=== PATIENT | female | born 2000 | race Caucasian/White ===

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

== ENCOUNTER 2022-01-13 20:57 | Emergency (ER) | payer OTHER ==
[~2022-01-13] VITALS: Ht 172.7 cm; Wt 68.0 kg
[2022-01-13 23:22] LABS: Source, Urine Clean Catch
[2022-01-13 23:25] LABS: Bilirubin, Urine Neg (Neg); Blood, Urine Neg (Neg); Glucose Qualitative, Urine Neg (Neg); Ketones, Urine Neg (Neg); Leukocyte Esterase, Urine 1+ (Neg); Nitrite, Urine Neg (Neg); Protein, Urine 1+ (Neg); Urobilinogen, Urine NORM (Normal)
[2022-01-13 23:46] LABS: Appearance, Urine Hazy (Clear); Color, Urine Yellow (P-Yellow)
[2022-01-13 23:48] LABS: Amorphous Light (0-Heavy); Bacteria Many /hpf; Mucus Mod (0-Heavy); Red Blood Cells, Urine Not Seen /hpf (0-2); Squamous Epithelial Cells Mod /hpf (Few)
[2022-01-14] MEDS ORDERED: ONDA4ODT MM (02:58)
== END 2022-01-14 03:16 | disposition home or self-care (01) ==
LOC: ER 20:57
PROVIDERS: Physician Assistant
DX: K52.9 Noninfective gastroenteritis and colitis, unspecified (principal); M54.9 Dorsalgia, unspecified; R11.2 Nausea with vomiting, unspecified
CPT/HCPCS: 81001; 81025; 87086; 99284; A9270; J1885

== ENCOUNTER → 2023-06-30 | Outpatient (CLI) | payer OTHER ==
[~2023-06-30] MED LIST changes: +ONDA4ODT MM
== END ==
LOC: LAB 16:38 → LAB SHORT 16:38
DX: J02.9 Acute pharyngitis, unspecified (principal)
CPT/HCPCS: 87081; 87147

== ENCOUNTER 2023-12-23 20:23 | Emergency (ER) | payer OTHER ==
[~2023-12-23] VITALS: Ht 172.7 cm; Wt 65.8 kg
[2023-12-23 20:28] VITALS: BP 136/96
== END 2023-12-24 01:07 | disposition home or self-care (01) ==
LOC: ER 20:23
DX: S05.01XA Injury of conjunctiva and corneal abrasion without foreign body, right eye, initial encounter (principal); X16.XXXA Contact with hot heating appliances, radiators and pipes, initial encounter; Z79.899 Other long term (current) drug therapy

== ENCOUNTER → 2024-10-20 | Outpatient (CLI) | payer OTHER ==
[~2024-10-20] MED LIST changes: +Adderall Xr 2020 MG PO
[2024-10-20 19:50] LABS: BASOPHILS ABSOLUTE AUTO 0.03 K/mm3 (0.00-0.23); BASOPHILS PERCENT AUTO 1 % (0-2); EOSINOPHILS ABSOLUTE AUTO 0.08 K/mm3 (0.00-0.68); EOSINOPHILS PERCENT AUTO 1 % (0-6); Hematocrit 39.9 % (33.0-51.0); Hemoglobin 12.9 g/dL (11.5-16.0); IMMATURE GRAN ABSOLUTE AUTO 0.01 K/mm3 (0.00-0.10); IMMATURE GRAN PERCENT AUTO 0 % (0-1); LYMPHOCYTES ABSOLUTE AUTO 2.01 K/mm3 (0.84-5.20); LYMPHOCYTES PERCENT AUTO 36 % (21-46); MONOCYTES ABSOLUTE AUTO 0.52 K/mm3 (0.16-1.47); MONOCYTES PERCENT AUTO 9 % (4-13); Mean Corpuscular HGB 30.3 pg (26.0-34.0); Mean Corpuscular HGB Conc 32.3 g/dL (31.5-36.5); Mean Corpuscular Volume 94 fL (80-100); Mean Platelet Volume 11.5 fL (9.1-12.4); NEUTROPHILS ABSOLUTE AUTO 2.98 K/mm3 (1.96-9.15); NEUTROPHILS PERCENT AUTO 53 % (41-73); Platelet Count 259 K/mm3 (150-400); RDW Coefficient Variation 13.4 % (11.7-14.2); Red Blood Cell Count 4.26 M/mm3 (3.80-5.20); White Blood Cell Count 5.63 K/mm3 (4.00-11.30)
[2024-10-20 20:12] LABS: Percent Saturation 12.5 % (15.0-50.0); Thyroid Stimulating Hormone 1.17 uIU/mL (0.360-4.800)
[2024-10-20 20:13] LABS: Albumin, Blood 4.3 g/dL (3.4-5.0); Albumin/Globulin Ratio 1.3 (0.8-1.8); Bilirubin, Total 0.4 mg/dL (0.1-1.0); Calcium, Blood 8.9 mg/dL (8.5-10.1); Creatinine, Blood 0.59 mg/dL (0.40-1.00); Globulin, Blood 3.3 g/dL (2.2-4.0); Potassium, Blood 3.8 mmol/L (3.5-5.5); Total Protein, Blood 7.6 g/dL (6.4-8.2)
== END ==
LOC: LAB 19:45 → LAB SHORT 19:45
PROVIDERS: Student in an Organized Health Care Education/Training Program
DX: R53.83 Other fatigue (principal); E55.9 Vitamin D deficiency, unspecified
CPT/HCPCS: 80053; 82306; 82728; 83540; 83550; 84443; 85025

== ENCOUNTER → 2025-01-03 | Outpatient (CLI) | payer OTHER ==
[2025-01-04 14:07] LABS: Candida Group, PCR NOT DETECTED (NOT DETECT); Candida glabrata-krusei, PCR NOT DETECTED (NOT DETECT)
[2025-01-04 14:09] LABS: Bacterial Vaginosis PCR Positive (NEGATIVE)
[2025-01-04 16:56] LABS: Neisseria Gonorrhoea Vaginal NOT DETECTED (NOT DETECT)
[2025-01-04 17:08] LABS: Chlamydia Trachomatis Vaginal DETECTED (NOT DETECT)
== END ==
LOC: LAB SHORT 14:04 → LAB 14:04
PROVIDERS: Student in an Organized Health Care Education/Training Program
DX: Z72.51 High risk heterosexual behavior (principal)
CPT/HCPCS: 81515; 87491; 87591

== ENCOUNTER → 2025-02-14 | Outpatient (CLI) | payer OTHER ==
[2025-02-14 18:51] LABS: Bacterial Vaginosis PCR Negative (NEGATIVE); Candida glabrata-krusei, PCR NOT DETECTED (NOT DETECT)
[2025-02-14 19:23] LABS: Chlamydia Trachomatis Vaginal NOT DETECTED (NOT DETECT); Neisseria Gonorrhoea Vaginal NOT DETECTED (NOT DETECT)
[2025-02-14 23:40] LABS: Candida Group, PCR DETECTED (NOT DETECT)
== END ==
LOC: LAB SHORT 16:23 → LAB 16:23
PROVIDERS: Student in an Organized Health Care Education/Training Program
DX: Z72.51 High risk heterosexual behavior (principal)
CPT/HCPCS: 81515; 87491; 87591

== ENCOUNTER → 2025-05-05 | Outpatient (CLI) | payer OTHER ==
[2025-05-07 07:31] LABS: HEPATITIS B SURFACE ANTIBODY <3.10 IU/L
[2025-05-07 15:30] LABS: HIV 1,2 COMBO ANTIGEN/ANTIBODY Negative (Negative)
[2025-05-07 17:46] LABS: HCV QNT BY NAAT (IU/ML) Not Detected; HCV QNT BY NAAT (LOG IU/ML) Not Detected; HCV QNT BY NAAT INTERP Not Detected (Not Detected)
== END ==
LOC: LAB 11:21 → LAB SHORT 11:21
PROVIDERS: Family Medicine
DX: Z20.9 Contact with and (suspected) exposure to unspecified communicable disease (principal)
CPT/HCPCS: 84460; 87340; 87389; 87522

== ENCOUNTER → 2025-06-22 | Outpatient (CLI) | payer OTHER | LOC: LAB SHORT 16:19 → LAB 16:19 | PROVIDERS: Student in an Organized Health Care Education/Training Program | DX: Z01.419 Encounter for gynecological examination (general) (routine) without abnormal findings (principal) | CPT/HCPCS: G0145 ==